=== PATIENT | female | born 1995 | race Caucasian/White ===

== ENCOUNTER 2018-11-22 18:08 | Emergency (ER) | payer MEDICAID, OTHER ==
[~2018-11-22] VITALS: Ht 160 cm; Wt 60.0 kg
[2018-11-22 18:13] VITALS: Ht 160 cm; Wt 60.0 kg
[2018-11-22] MEDS ORDERED: morphine 4 MG/ML VIAL IV STA (18:18)
[2018-11-22] MEDS ORDERED: SODIUM CHLORIDE 0.9% 1L BAG IV* STA (18:18)
[2018-11-22] MEDS ORDERED: KETOROLAC 15 MG INJ IV STA (18:18)
[2018-11-22] MEDS ORDERED: PIPER-TAZO 3.375 GM IV (PMX) 100 ML IVPB STA (18:18)
[2018-11-22] MEDS ORDERED: ACETAMINOPHEN 325 MG TAB PO STA (18:18)
[2018-11-22] MEDS ORDERED: ONDANSETRON 4 MG INJ IV STA (18:18)
--- NOTE | 2018-11-22 19:40 | ERD ---
ER Documentation Chief Complaint Chief Complaint Flu like symptoms cough abdominal pain started today HPI This is a 22-year-old female who presents to the emergency room with 15 days of symptoms. She describes fever on and off, dry nonproductive cough for this timeframe. Patient is also reporting right lower quadrant abdominal pain for this timeframe as well. Patient denies any nausea vomiting or diarrhea constipation. No surgical history. The pain is noted to be 6 out of 10 currently. Patient noted to have a temperature of 104 at triage. During the patient's encounter translation services were utilized Language: Bulgarian Source: In person ROS All systems reviewed and are negative except as per history of present illness. Medications Home Meds Active Scripts Ciprofloxacin Hcl* (Ciprofloxacin Hcl*) 500 Mg Tablet, 500 MG PO BID for 10 Days, TAB Prov:TRENT MILIAN MD 11/22/18 Ibuprofen* (Motrin*) 800 Mg Tab, 800 MG PO Q6H PRN for PAIN AND OR ELEVATED TEMP, #30 TAB Prov:TRENT MILIAN MD 11/22/18 Allergies Allergies: Coded Allergies: No Known Allergy (Unverified , 11/22/18) FmHx Family History: No diabetes Physical Exam Vitals Vital Signs Date Temp Pulse Resp B/P (MAP) Pulse Ox O2 O2 Flow FiO2 Time Delivery Rate 11/22/18 98.8 94 18 110/73 99 Room Air 21:39 (85) 11/22/18 101.9 115 18 105/67 99 Room Air 20:00 (80) 11/22/18 104.0 18:30 11/22/18 104.0 130 22 124/68 100 18:13 (86) Physical Exam General: Well developed, well nourished, no acute distress Head: Normocephalic, atraumatic. Eyes: Pupils equally reactive, EOM intact ENT: Moist mucous membranes Neck: Supple, no lymphadenopathy Respiratory: Lungs clear bilaterally, no distress Cardiovascular: Tachycardia, no murmurs, rubs, or gallops Abdominal: Soft, focal tenderness to McBurney's point with voluntary guarding, no rebound, no tenderness to McBurney's point : Deferred MSK: No edema, no unilateral swelling, 5/5 strength Neurologic: Alert and oriented, moving all extremities, normal speech, no focal weakness, no cerebellar signs Skin: No rash Psych: Normal mood Result Diagram: 11/22/18182511/22/18 182 Results 24 hrs Laboratory Tests Test 11/22/18 18:23 11/22/18 18:26 11/22/18 19:37 11/22/18 19:43 POC Venous 0.9 mmol/L Lactate White Blood Count 17.5 10^3/ul Red Blood Count 4.36 10^6/ul Hemoglobin 12.7 g/dl Hematocrit 38.6 % Mean Corpuscular 88.5 fl Volume Mean Corpuscular 29.1 pg Hemoglobin Mean Corpuscular 32.9 g/dl Hemoglobin Concen t Red Cell 12.5 % Distribution Width Platelet Count 360 10^3/UL Mean Platelet 8.5 fl Volume Immature 0.700 % Granulocytes % Neutrophils % 76.1 % Lymphocytes % 12.3 % Monocytes % 10.6 % Eosinophils % 0.1 % Basophils % 0.2 % Nucleated Red 0.0 /100WBC Blood Cells % Immature 0.120 10^3/ul Granulocytes # Neutrophils # 13.3 10^3/ul Lymphocytes # 2.2 10^3/ul Monocytes # 1.9 10^3/ul Eosinophils # 0.0 10^3/ul Basophils # 0.0 10^3/ul Nucleated Red 0.0 10^3/ul Blood Cells # Prothrombin Time 14.0 Sec Prothrombin Time 1.1 Ratio INR International 1.07 Normalized Ratio Activated 32.0 Sec Partial Thrombopl ast Time Sodium Level 140 mmol/L Potassium Level 3.9 mmol/L Chloride Level 100 mmol/L Carbon Dioxide 25 mmol/L Level Anion Gap 15 Blood Urea 11 mg/dl Nitrogen Creatinine 0.65 mg/dl Est Glomerular > 60 mL/min Filtrat Rate mL/min Glucose Level 116 mg/dl Calcium Level 9.3 mg/dl Total Bilirubin 0.9 mg/dl Direct Bilirubin 0.00 mg/dl Indirect 0.9 mg/dl Bilirubin Aspartate Amino 25 IU/L Transf (AST/SGOT) Alanine 20 IU/L Aminotransferase (ALT/SGPT) Alkaline 68 IU/L Phosphatase Total Protein 8.6 g/dl Albumin 4.6 g/dl Globulin 4.00 g/dl Albumin/Globulin 1.15 Ratio Lipase 52 U/L Serum HCG, NEGATIVE Qualitative Urine Color YELLOW Urine Clarity CLEAR Urine pH 5.0 Urine Specific 1.015 [place] Urine Ketones 1+ mg/dL Urine Nitrite NEGATIVE mg/dL Urine Bilirubin NEGATIVE mg/dL Urine NEGATIVE mg/dL Urobilinogen Urine Leukocyte TRACE [place]/ul Esterase Urine Microscopic 2 /HPF RBC Urine Microscopic 12 /HPF WBC Urine Squamous FEW /HPF Epithelial Cells Urine Bacteria FEW /HPF Urine Hemoglobin 2+ mg/dL Urine Glucose NEGATIVE mg/dL Urine Total NEGATIVE mg/dl Protein POC Beta HCG, NEGATIVE Qualitative Current Medications Medications Dose Sig/[place] Start Time Status Last (Trade) Ordered Route PRN Stop Time Admin Dose Reason Admin Sodium 1,800 ml BOLUS OVER 2 11/22/18 DC 11/22/18 Chloride HOURS STAT 18: 18:29 (NS) IV* 11/22/18 18:21 650 mg ONCE STAT 11/22/18 DC 11/22/18 Acetaminophen PO 18: 18:30 (Tylenol 11/22/18 18:22 Tab) Morphine 4 mg ONCE STAT 11/22/18 DC 11/22/18 Sulfate IV 18:18 18:30 (morphine) 11/22/18 18:22 Ondansetron 4 mg ONCE STAT 11/22/18 DC 11/22/18 HCl (Zofran IV 18:18 18:30 Inj) 11/22/18 18:22 Piperacillin 100 ml @ ONCE STAT 11/22/18 DC 11/22/18 Sod/ 200 mls/hr IVPB 18: 18:30 Tazobactam 11/22/18 18:47 Sod Ketorolac 15 mg ONCE STAT 11/22/18 DC 11/22/18 Tromethamine IV 18:18 19:56 (Toradol) 11/22/18 18:22 Procedures/MDM EKG, MONITORS, & DIAGNOSTIC IMAGING: EKG: I reviewed and interpreted a 12-lead EKG. Rhythm: Sinus tachycardia ST Changes: No contiguous ST segment elevations T waves: No contiguous T wave inversions Impression: No evidence of acute cardiac ischemia Chest x-ray: I reviewed and interpreted a 1 view of the chest Mediastinum: No enlargement Cardiac silhouette: No cardiomegaly Airspace: Clear lung pedroza bilaterally without evidence of pneumothorax Bones: No evidence of fracture CT abdomen and pelvis: IMPRESSION: Mild right perinephric and periureteral fat stranding. Findings may reflect recently passed stone or ascending urinary tract infection. Clinical correlation and correlation urinalysis is recommended. Otherwise, unremarkable limited noncontrast CT of the abdomen and pelvis. RPTAT: LAB INTERPRETATION: I reviewed the laboratory testing and it shows leukocytosis, possible urinary tract infection with WBC of 12 and leuk esterase MEDICAL DECISION MAKING: The patient has multiple complaints over 2-week timeframe that include cough and congestion as well as abdominal pain. The patient however has a fever and has focal tenderness to the right lower quadrant raising the concern for acute appendicitis. Timeframe does not make much sense. Patient will benefit from laboratory testing, diagnostic imaging including CT imaging of abdomen and pelvis. Code sepsis was initiated. ER COURSE: * Patient given appropriate antipyretics, IV fluids, blood cultures, Zosyn * Patient symptoms are dramatically improved. Heart rate, temperature are dramatically improved as well. The patient is now resting comfortably and asymptomatic. * Only clear etiology at this time is possible pyelonephritis based on CT findings and possible urinalysis. There is no signs or symptoms concerning for pelvic infection. She denies any vaginal discharge or history of STDs. The patient scan is negative. No signs of acute ovarian process. * Given the fact that she feels much better I believe outpatient management with a diagnosis of pyelonephritis would be reasonable. A course of ciprofloxacin will be provided. CONSULTATION: None DISPOSITION PLAN: The patient does not have an identifiable emergent medical condition that warrants inpatient hospitalization at this time. The patient is deemed safe for discharge with outpatient follow-up. We discussed follow up with the patient's primary care doctor within 24 to 48 hours as needed. We also discussed return to the emergency room for worsening symptoms or worsening condition. Outpatient referral: None required Discharge Medications: Ciprofloxacin, Motrin Departure Diagnosis: Primary Impression: Pyelonephritis Additional Impression: Acute bronchitis Bronchitis organism: unspecified organism Qualified Codes: J20.9 - Acute bronchitis, unspecified Condition: Stable TRENT MILIAN MD November 22, 2018 19:40
[2018-11-22 21:39] VITALS: BP 110/73; PULSE 94; RESP 18
[2018-11-22] MEDS ORDERED: IBUP800T48 PO (21:42)
[2018-11-22] MEDS ORDERED: CIPR500T4 PO (21:42)
--- NOTE | 2018-11-23 11:55 | RADRPT ---
Vent Rate: 119 bpm RR Interval: 0 msec VA Interval: 134 msec QRS Duration: 82 msec QT Interval: 298 msec QTC Interval: 419 msec P-R-T [place]: 50 - 84 - 21 degrees Sinus tachycardia Otherwise normal ECG Electronically Signed By: *[facility]
== END 2018-11-22 21:50 | disposition home or self-care (01) ==
LOC: E/R 18:08
DX: N12 Tubulo-interstitial nephritis, not specified as acute or chronic (principal); J20.9 Acute bronchitis, unspecified; R10.31 Right lower quadrant pain
CPT/HCPCS: 36415; 71045; 74176; 80053; 81001; 81025; 83605; 83690; 84703; 85025; 85610; 85730; 87040; 87086; 93005; 96374; 96375; J1885; J2270; J2405; J2543; J7030; Z7502; Z7610